=== PATIENT | female | born 1930 | race Caucasian/White ===

== ENCOUNTER 2018-09-30 17:19 | Emergency (ER) | payer MEDICARE, MEDICAID, OTHER ==
[~2018-09-30] VITALS: Ht 152.4 cm; Wt 45.0 kg
[2018-09-30 21:00] VITALS: BP 156/93
== END 2018-09-30 21:24 | disposition home or self-care (01) ==
LOC: ER 17:19
DX: S09.8XXA Other specified injuries of head, initial encounter (principal); F03.90 Unspecified dementia, unspecified severity, without behavioral disturbance, psychotic disturbance, mood disturbance, and anxiety; I12.9 Hypertensive chronic kidney disease with stage 1 through stage 4 chronic kidney disease, or unspecified chronic kidney disease; N18.9 Chronic kidney disease, unspecified; E78.00 Pure hypercholesterolemia, unspecified; Z95.0 Presence of cardiac pacemaker; W01.0XXA Fall on same level from slipping, tripping and stumbling without subsequent striking against object, initial encounter; Y93.89 Activity, other specified; Y92.128 Other place in nursing home as the place of occurrence of the external cause
CPT/HCPCS: 72170; 82962; 99284